=== PATIENT | female | born 1990 | race Two or more races ===

== ENCOUNTER 2018-07-09 10:45 | Emergency (ER) | payer OTHER ==
[~2018-07-09] VITALS: Ht 160 cm; Wt 81.2 kg
== END 2018-07-09 12:52 | disposition home or self-care (01) ==
LOC: ER 10:45
DX: O98.512 Other viral diseases complicating pregnancy, second trimester (principal); J09.X2 Influenza due to identified novel influenza A virus with other respiratory manifestations; Z34.02 Encounter for supervision of normal first pregnancy, second trimester

== ENCOUNTER 2018-11-20 08:41 | Day surgery (SDC) | payer OTHER | END 2018-11-20 17:15 | disposition home or self-care (01) | LOC: CIR.AMB 08:41 | DX: Z30.2 Encounter for sterilization (principal) ==